=== PATIENT | male | born 1985 | race Caucasian/White ===

== ENCOUNTER 2016-12-15 11:22 | Day surgery (SDC) | payer BC ==
--- NOTE | ~2016-12-15 | EGD ---
EGD REPORT [facility] [address] [place] [address] NAME: DUSTIN COREA : 81 STATUS : REG [facility] [place] PAT#: [id number] AGE: 31 ADM/REG DATE : 12/15/16 MR#: [id number] REPORT SERV DATE: 12/15/16 DICTATED BY: CINDY ROCK DATE: 12/15/16 REPORT STATUS : Draft TRANSCRIBED BY: [facility] DATE: 12/15/16 [facility] Patient Name: Dustin Corea Date of : 1985 Attending MD: CINDY ROCK MD Procedure Date No Time: 12/15/2016 Procedure: Upper GI endoscopy Indications: Dysphagia Referring MD: KASANDRA COUGHLIN MD Medicines: Monitored Anesthesia Care Complications: No immediate complications. Procedure: Pre-Anesthesia Assessment: - ASA Grade Assessment: II - A patient with mild systemic disease. After obtaining informed consent, the endoscope was passed under direct vision. Throughout the procedure, the patient's blood pressure, pulse, and oxygen saturations were monitored continuously. The GIF [id number] was introduced through the mouth, and advanced to the second part of duodenum. The upper GI endoscopy was accomplished without difficulty. The patient tolerated the procedure fairly well. Findings: Ringed esophagus in mid and distal esophagus, A guidewire was placed under fluoroscopic guidance and the scope was withdrawn. Dilation was performed with a Savary dilator with mild resistance at 36 Fr and mild resistance at 39 Fr. Estimated blood loss was minimal. Post dilation mucosal tears in the mid and distal esophagus. no perforation noted. The entire examined stomach was normal. The cardia and gastric fundus were normal on retroflexion. The duodenal bulb and 2nd part of the duodenum were normal. Impression: - Ringed esophagus in mid and distal esophagus - Normal stomach. - Normal duodenal bulb and 2nd part of the duodenum. Recommendation: - Patient has a contact number available for emergencies. The signs and symptoms of potential delayed complications were discussed with the patient. Return to normal activities tomorrow. Written discharge instructions were provided to the patient. - Return to previous diet. - Continue present medications. - Repeat the upper endoscopy in 1 week for retreatment. EGD REPORT [address] [place]. [address] NAME: DUSTIN COREA : [birth year] STATUS : REG [facility] [place] PAT#: [id number] AGE: 31 ADM/REG DATE : 12/15/16 MR#: [id number] REPORT SERV DATE: 12/15/16 DICTATED BY: CINDY ROCK DATE: 12/15/16 REPORT STATUS : Draft TRANSCRIBED BY: [employer] DATE: 12/15/16 - Liquids for 24 hours then soft diet until repeat egd with dilation. Procedure Code(s): --- Professional --- 81558, Esophagogastroduodenoscopy, flexible, transoral; with insertion of guide wire followed by passage of dilator(s) through esophagus over guide wire Diagnosis Code(s): --- Professional --- R13.10, Dysphagia, unspecified CPT copyright 2013 [employer]. All rights reserved. The codes documented in this report are preliminary and upon therapeutic program worker review may be revised to meet current compliance requirements. CINDY ROCK MD 12/15/2016 2:26 PM This report has been signed electronically. Number of Addenda: 0 Note Initiated On: 12/15/2016 1:45 PM Scope Withdrawal Time 0 hours 0 minutes 0 seconds [id number] [id number]
[~2016-12-15 11:22] MED LIST: MULTI-VIT HP PO; PRILO PO; ZOCOR20 PO
== END 2016-12-15 23:59 | disposition home or self-care (01) ==
LOC: DMU 11:22
PROVIDERS: Internal Medicine Gastroenterology
PROC: 0D758ZZ Dilation of Esophagus, Via Natural or Artificial Opening Endoscopic (ICD-10-PCS; principal; 2016-12-15 13:00)
DX: K22.2 Esophageal obstruction (principal); K21.9 Gastro-esophageal reflux disease without esophagitis; E78.00 Pure hypercholesterolemia, unspecified; Z91.018 Allergy to other foods; Z79.899 Other long term (current) drug therapy; Z98.890 Other specified postprocedural states
CPT/HCPCS: 76000